=== PATIENT | male | born 2005 | race Caucasian/White ===

== ENCOUNTER 2025-01-24 15:38 | Outpatient (CLI) | payer BC, SELFPAY | END 2025-01-24 15:39 | disposition home or self-care (01) | LOC: AMB 01-30 18:03 | PROVIDERS: Visit Provider Family Medicine | DX: R07.89 Other chest pain (principal) | CPT/HCPCS: A0425; A0427 ==

== ENCOUNTER 2025-01-24 16:22 | Emergency (ER) | payer BC, SELFPAY ==
[2025-01-24] VITALS (18 sets, daily range): BP systolic 112–137; BP diastolic 57–82; PULSE 85–102; RESP 18; TEMP 36.6; O2SAT 95–99
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
[2025-01-24 17:25] LABS: Hematocrit* 42.7 % (37.0-53.0); Hemoglobin* 14.4 gm/dL (13.5-17.5); Immature Granulocytes Abs Auto 0.01 K/uL (0.00-0.30); Immature Granulocytes Pct Auto 0.1 %; Mean Corpuscular HGB Conc 34 gm/dL (32-36); Mean Corpuscular Hemoglobin 30 pg (26-34); Mean Corpuscular Volume 90 fL (80-100); RDW Coefficient of Variation % 12.0 % (11.5-15.5); Red Blood Count* 4.77 m/uL (4.30-5.90); White Blood Count* 9.94 K/uL (4.50-11.00)
[2025-01-24 17:27] LABS: Lymphocytes Absolute Auto 1.20 K/uL (0.90-2.90); Slide Review Reflex No
[2025-01-24 17:37] LABS: Albumin* 4.7 g/dL (3.3-5.0); Chloride* 99 mmol/L (96-114); Sodium* 137 mmol/L (135-149)
[2025-01-24 17:38] LABS: Potassium* 4.1 mmol/L (3.6-5.1)
[2025-01-24 17:40] LABS: Alanine Aminotransferase* 30 U/L (4-50); Alkaline Phosphatase* 89 U/L (40-150); Anion Gap 12 mEq/L (7-15); Aspartate Amino Transferase* 26 U/L (12-35); Bilirubin Total* 0.7 mg/dL (0.1-1.5); Blood Urea Nitrogen* 17 mg/dL (5-24); Calcium* 9.1 mg/dL (8.4-10.6); Carbon Dioxide* 26 mmol/L (20-32); Creatinine* 0.9 mg/dL (0.5-1.5); Estimated Glomerular Filt Rate 125 ml/min; Glucose* 94 mg/dL (60-115); Total Protein* 7.2 g/dL (6.0-8.3)
[2025-01-24 17:44] LABS: D Dimer Quantitative* < 0.27 ug/ml (0.00-0.50)
--- OUTSIDE RECORDS SUMMARY | 2025-01-24 17:51 | XMS_ITS | Referral Summary ---
Author Organization [facility] Address [address] [place] [phone] Phone Care Team Providers Care Press Manager Name Role Phone Pcp, No Primary Care Provider Unavailabl e Allergies No known active allergies Medications white petrolatum (VASELINE) ointment Apply 1 application topically as needed. 425 g Active Additional Information Patient not taking.Reported on 04/29/2024 chlorhexidine (Peridex) 0.12 % mouthwash Use as directed 10 mL in the mouth or throat 2 (two) times a day. 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 Gender Identity Not on file Sexual Orientation Not on file Last Filed Vital Signs Vital Sign Reading Time Taken Comments Blood Pressure 142/91 07/03/2024 10:30 AM CDT Pulse 82 07/03/2024 10:30 AM CDT Temperature 36.5 C (97.7 F) 04/29/2024 3:17 PM COMMUNICATION SPEC Respiratory Rate 16 05/31/2024 9:40 AM CDT Oxygen Saturation 98% 04/29/2024 3:17 PM COMMUNICATION SPEC Inhaled Oxygen Concentration - - Weight 78.6 kg (173 lb 4.8 oz) 05/31/2024 9:40 A M CDT Height - - Body Mass Index - - Plan of Treatment Not on file Insurance [facility] Care Teams Press Manager Relationship Specialty Start Date End Date Pcp, No PCP - General 04/29/24
--- OUTSIDE RECORDS SUMMARY | 2025-01-24 17:51 | XMS_ITS | Clinical Summary ---
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 Gender Identity Not on file Sexual Orientation Not on file Last Filed Vital Signs Vital Sign Reading Time Taken Comments Blood Pressure 142/91 07/03/2024 10:30 AM CDT Pulse 82 07/03/2024 10:30 AM CDT Temperature 36.5 C (97.7 F) 04/29/2024 3:17 PM HYDROCRANE OPERATOR Respiratory Rate 16 05/31/2024 9:40 AM CDT Oxygen Saturation 98% 04/29/2024 3:17 PM HYDROCRANE OPERATOR Inhaled Oxygen Concentration - - Weight 78.6 kg (173 lb 4.8 oz) 05/31/2024 9:40 A M CDT Height - - Body Mass Index - - Plan of Treatment Health Maintenance Due Date Last Done Comments HIV Screening 12/24/2018 HPV Vaccine (1 - Male 3-dose series) 12/24/2018 Meningococcal B Vaccine (1 of 2 - Standard) 2019 Hepatitis C Screening 12/24/2021 DTAP/TDAP/TD VACCINES (1 - Tdap) 12/24/2022 Tobacco Cessation and Counseling (12+) 03/01/2024 COVID-19 VACCINE (1 - season) 2024 Influenza Vaccine (#1) 2024 7, 02/05/2015, 12/26/2009, Additional history exists Depression Screening (12+) 04/29/2025 04/29/2024 Pneumococcal Vaccine: 0-49 Years Aged Out No longer eligible based on patient's age to complete this topic Insurance [facility] Care Teams Slime Plant Operator Helper Relationship Specialty Start Date End Date Pcp, No PCP - General 04/29/24
== END 2025-01-24 19:43 | disposition home or self-care (01) ==
PROVIDERS: Emergency Provider Family Medicine
DX: R07.89 Other chest pain (principal); I45.10 Unspecified right bundle-branch block
CPT/HCPCS: 36415; 80053; 83735; 84484; 85025; 85379; 93005; 94761; 96360; 96361; 99284; 99285; J7030